=== PATIENT | female | born 1965 ===

== ENCOUNTER 2017-05-20 17:56 | Emergency (ER) | payer SELFPAY ==
[2017-05-20 17:56] VITALS: BMI 30.4
[2017-05-20 18:27] VITALS: BP 145/64; PULSE 75; RESP 16; TEMP 97.8; O2SAT 98
--- NOTE | 2017-05-20 18:46 | ED PDOC ---
HPI: General Adult Time Seen by Provider: 05/20/17 18:43 Chief Complaint (Nursing): Hip Pain Chief Complaint (Provider): abdominal pain/back pain History Per: Patient (51 y/o female here for evaluation of lower abdominal pain/ back pain x 30 days. States pain began gradually left lower quadrant and later involved right side of back. Denies any dysuria/urinary frequency. Seen by pmd and started on antibiotics. Was advised to go to ED if symptoms persisted. Has completed antibiotics (unknown) and noted improved symptoms initially. No fevers/chills.) Past Medical History Reviewed: Historical Data, Nursing Documentation, Vital Signs Vital Signs: Last Vital Signs Temp 97.8 F 05/20/17 18:23 Pulse 75 05/20/17 18:23 Resp 16 05/20/17 18:23 BP 145/64 05/20/17 18:23 Pulse Ox 98 05/20/17 18:45 - Medical History PMH: Anemia Denies: Chronic Kidney Disease - Family History Family History: States: No Known Family Hx - Home Medications Home Medications: Ambulatory Orders Medication Instructions Recorded Acyclovir 400 mg PO BID 10/13/14 Calcium/Iron [Ferosul 112 mg-50 mg] 1 tab PO DAILY 10/13/14 Ciprofloxacin [Cipro] 500 mg PO BID 10/13/14 Folic Acid 1 mg PO DAILY 10/13/14 Vitamins9 [Ferrex Pc 1 tab PO DAILY 10/13/14 Forte] Naproxen 1 tab PO Q12 PRN #14 tab 05/20/17 diaZEpam [Valium] 5 mg PO Q6 PRN #6 tab 05/20/17 - Allergies Allergies/Adverse Reactions: Allergies Allergy/AdvReac Type Severity Reaction Status Date / Time No Known Allergies Allergy Verified 05/07/14 10:49 Review of Systems ROS Statement: Except As Marked, All Systems Reviewed And Found Negative Physical Exam - Reviewed Nursing Documentation Reviewed: Yes Vital Signs Reviewed: Yes - Physical Exam Appears: Positive for: Well, Non-toxic, No Acute Distress Head Exam: Positive for: ATRAUMATIC, NORMAL INSPECTION, NORMOCEPHALIC Skin: Positive for: Normal Color, Warm, DRY Eye Exam: Positive for: EOMI, Normal appearance, PERRL ENT: Positive for: Normal ENT Inspection Neck: Positive for: Normal, Painless ROM Cardiovascular/Chest: Positive for: Regular Rate, Rhythm Respiratory: Positive for: CNT, Normal Breath Sounds Gastrointestinal/Abdominal: Positive for: Normal Exam, Bowel Sounds, Soft Back: Positive for: Normal Inspection Extremity: Positive for: Normal ROM Neurologic/Psych: Positive for: Alert, Oriented - Laboratory Results Result Diagrams: 05/20/17 19:33 05/20/17 19:33 - ECG O2 Sat by Pulse Oximetry: 98 - Progress ED Course And Treament: re-examined. Nontender abdomen. tenderness lower paralumbar region persistent. 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 Will treat for uti and musculoskeletal pain Disposition - Clinical Impression Clinical Impression: Back strain, UTI (urinary tract infection) - Patient ED Disposition Is Patient to be Admitted: No - Disposition Disposition: Routine/Home Disposition Time: 20:25 Condition: FAIR Prescriptions: diaZEpam [Valium] 5 mg PO Q6 PRN #6 tab PRN Reason: Muscle Spasm Naproxen 1 tab PO Q12 PRN #14 tab PRN Reason: Pain, Moderate (4-7) Instructions: Musculoskeletal Pain (ED), Acute Low Back Pain (GEN), Urinary Tract Infection in Women (GEN) Forms: [email or web address] ([place]), [facility] ED School/Work Excuse Print Language: BRAZILIAN
[2017-05-20 19:42] LABS: BASO % 0.2 % (0.0-2.0); EOS # 0.1 K/uL (0.0-0.7); EOS % 0.9 % (0.0-4.0); HEMOGLOBIN 14.4 g/dL (12.0-16.0); LYMPH # 1.6 K/uL (1.0-4.3); LYMPH % 22.3 % (20.0-40.0); MEAN CELL VOLUME 89.5 fl (81.0-99.0); MEAN CORPUSCULAR HEMOGLOBIN 30.7 pg (27.0-31.0); MEAN CORPUSCULAR HGB CONC 34.3 g/dL (33.0-37.0); MEAN PLATELET VOLUME 9.3 fl (7.2-11.7); MONO # 0.5 K/uL (0.0-0.8); MONO % 7.1 % (0.0-10.0); NEUT % 69.5 % (50.0-75.0); NRBC % 0.1 % (0.0-0.0); RBC 4.71 Mil/uL (3.80-5.20); RED CELL DISTRIBUTION WIDTH 13.6 % (11.5-14.5); WHITE BLOOD COUNT 7.1 K/uL (4.8-10.8)
[2017-05-20 19:55] LABS: SQUAMOUS EPITHIAL 5 /hpf (0-5); URINE BACTERIA RARE (<OCC); URINE BILIRUBIN NEGATIVE (NEGATIVE); URINE BLOOD NEGATIVE (NEGATIVE); URINE CLARITY CLOUDY (Clear); URINE COLOR YELLOW (YELLOW); URINE GLUCOSE (UA) NEG (Normal); URINE LEUKOCYTE ESTERASE MOD Leu/uL (Negative); URINE NITRATE NEGATIVE (NEGATIVE); URINE PROTEIN NEGATIVE (NEGATIVE); URINE UROBILINOGEN 0.2-1.0 mg/dL (0.2-1.0)
[2017-05-20 19:56] LABS: ALB/GLOB RATIO 1.3 (1.0-2.1); ALBUMIN 4.5 g/dL (3.5-5.0); ALT/SGPT 60 U/L (9-52); AST/SGOT 43 U/L (14-36); BLOOD UREA NITROGEN 14 mg/dl (7-17); CALCIUM 9.5 mg/dL (8.4-10.2); GFR AFRICAN-AMERICAN > 60; GFR NON-AFRICAN AMERICAN > 60; LIPASE 122 U/L (23-300)
== END 2017-05-20 23:02 | disposition home or self-care (01) ==
LOC: H.ER 17:56
DX: N39.0 Urinary tract infection, site not specified (principal); M54.5 Low back pain
CPT/HCPCS: 80053; 81003; 81025; 83690; 85025; 87086; 96374; 99284; J1885